=== PATIENT | male | born 1975 | race African-American/Black ===

== ENCOUNTER 2017-05-27 18:06 | Emergency (ER) | payer OTHER ==
[2017-05-27] MEDS: LISINOPRIL 10 MG TABLET PO (20:12)
[2017-05-27] MEDS: hydroCHLOROthiazide 12.5 MG CAPSULE PO (20:12)
== END 2017-05-27 22:12 | disposition home or self-care (01) ==
LOC: ER 18:06
DX: L03.115 Cellulitis of right lower limb (principal); I10 Essential (primary) hypertension; E11.9 Type 2 diabetes mellitus without complications; E78.00 Pure hypercholesterolemia, unspecified; E66.01 Morbid (severe) obesity due to excess calories; Z68.43 Body mass index [BMI] 50.0-59.9, adult
CPT/HCPCS: 93971; 99284-25

== ENCOUNTER 2018-09-06 19:34 | Emergency (ER) | payer SELFPAY ==
[~2018-09-06] VITALS: Ht 180.3 cm; Wt 204.1 kg
[~2018-09-06 19:34] MED LIST: AMOX500T PO; CLIN150C14 PO; FLUT9.9S NS; HYDR12.58 PO; LISI10TA2 PO; METF10007 PO
[2018-09-06 19:41] VITALS: BP 182/111
[2018-09-06] MEDS ORDERED: CEPH-264 PO (19:56)
[2018-09-06] MEDS ORDERED: GENT5DRO3 RIGHTEYE (19:56)
--- NOTE | 2018-09-06 19:56 | PHYS DOC ---
Past Medical History Past Medical History: Diabetes-Type II, High Cholesterol, Hypertension, Other Additional Past Medical Histor: CELLULITIS (JEOVANNY MIGUEL) Past Surgical History: No Surgical History (JEOVANNY MIGUEL) Alcohol Use: None Drug Use: None (JEOVANNY MIGUEL) Adult General Chief Complaint Chief Complaint: EYE PROBLEMS HPI HPI Patient is a 42 year old male who reports an irritated R eye for the last 24 hours and today he noticed he had swelling of the lower R eyelid and his eye was matted shut. He has been holding warm compresses to the eye all day and reports improvement but that he is still having eye irritation. He denies any recent grinding or risk of FB. He is holding the eye wide open during exam without difficulty and no obvious tearing. Pt does not wear contacts or glasses. No prior eye surgery. (JEOVANNY MIGUEL) Review of Systems Review of Systems Constitutional: Denies fever or chills Eyes: Denies change in visual acuity. Reports R eye redness, swelling and pain. HENT: Denies nasal congestion or sore throat Respiratory: Denies cough or shortness of breath Cardiovascular: Denies chest pain GI: Denies abdominal pain, nausea, vomiting, bloody stools or diarrhea Musculoskeletal: Denies back pain or joint pain Integument: Denies rash or skin lesions. Reports swelling under R eye. Neurologic: Denies headache, focal weakness or sensory changes Endocrine: Denies polyuria or polydipsia. Has not checked his blood sugar today. All other systems were reviewed and found to be within normal limits, except as documented in this note. (JEOVANNY MIGUEL) Allergies Allergies Allergies Coded Allergies Type Severity Reaction Last Updated Verified No Known Drug Allergies 03/12/15 No (ROD LIRIANO DO) Physical Exam Physical Exam Constitutional: Well developed, well nourished, no acute distress, non-toxic appearance. HENT: Normocephalic, atraumatic, bilateral external ears normal, oropharynx moist, no oral exudates, nose normal. Eyes: PERRLA, EOMI, conjunctival erythema on R. Yellow drainage and matting on lashes. Lower internal hordeolum noted on exam that is draining. Neck: Normal range of motion, no tenderness, supple, no stridor. Cardiovascular:Heart rate regular rhythm, no murmur Lungs & Thorax: Bilateral breath sounds clear to auscultation Abdomen: Bowel sounds normal, soft, no tenderness, no masses, no pulsatile masses. Skin: Warm, dry. Erythema of R lower eyelid. No signs of periorbital cellulitis. Back: No tenderness, no CVA tenderness. [] Extremities: No tenderness, no cyanosis, no clubbing, ROM intact, no edema. Neurologic: Alert and oriented X 3, normal motor function, normal sensory function, no focal deficits noted. Psychologic: Affect normal, judgement normal, mood normal. (JEOVANNY MIGUEL) Current Patient Data Vital Signs Vital Signs Date Time Temp Pulse Resp B/P (MAP) Pulse Ox O2 Delivery O2 Flow Rate FiO2 09/06/18 19:41 97.6 83 20 182/111 (134) 97 Room Air 97.6 (LIRIANOROD BRISENO DO) EKG EKG [] (JEOVANNY MIGUEL) Radiology/Procedures Radiology/Procedures [] (JEOVANNY MIGUEL) Course & Med Decision Making Course & Med Decision Making Pertinent Labs and Imaging studies reviewed. (See chart for details) Pt's blood pressure is elevated while in ER. He agrees to recheck when feeling better. I have also discussed monitoring blood sugars closely while he is healing from this eye infection. While there is an obvious sty on exam, he does have injected conjunctiva and drainage consistent with conjunctivitis and some edema and tender of lower eyelid. Will cover with oral abx and abx drops. Pt to continue the warm compresses. (JEOVANNY MIGUEL) Dragon Disclaimer Dragon Disclaimer This electronic medical record was generated, in whole or in part, using a voice recognition dictation system. (JEOVANNY MIGUEL) Departure Departure Impression: Primary Impression: Stye Additional Impression: Conjunctivitis Disposition: 01 HOME, SELF-CARE Condition: STABLE Referrals: ROD CHANCE MD (PCP) Patient Instructions: Bacterial Conjunctivitis, [id number], Sty Additional Instructions: Please hold warm compresses to the eye every few hours. Follow up with opthomology if symptoms persist. Scripts Cephalexin (KEFLEX) 500 Mg Capsule 1 CAP PO TID for 7 Days, #21 CAP Prov: JEOVANNY MIGUEL 09/06/18 Gentamicin Sulfate (GENTAMICIN SULFATE 0.3% OPH SOLN) 5 Ml Drops 2 DROP RIGHTEYE QID for 7 Days, #5 ML Prov: JEOVANNY MIGUEL 09/06/18 Attending Signature Attending Signature I have reviewed the PA/CHIEF RADIOLOGY's note and plan of care. I was available for consultation as needed during the patient's visit in the emergency department. I agree with the clinical impression, plan, and disposition. (ROD LIRIANO DO) Problem Qualifiers JEOVANNY MIGUEL Sep 06, 2018 19:56 ROD LIRIANO DO Sep 07, 2018 05:40
== END 2018-09-06 20:00 | disposition home or self-care (01) ==
LOC: ER 19:34
DX: H00.022 Hordeolum internum right lower eyelid (principal); H10.89 Other conjunctivitis; E11.9 Type 2 diabetes mellitus without complications; E78.00 Pure hypercholesterolemia, unspecified; I10 Essential (primary) hypertension
CPT/HCPCS: 99283

== ENCOUNTER 2019-02-01 07:10 | Emergency (ER) | payer SELFPAY ==
[~2019-02-01] VITALS: Ht 182.9 cm; Wt 188.2 kg
[~2019-02-01 07:10] MED LIST changes: +CEPH-264 PO; +GENT5DRO3 RIGHTEYE
[2019-02-01 07:48] LABS: BASO # 0.1 x10^3/uL (0.0-0.2); BASO % 1 % (0-3); EOS # 0.2 x10^3/uL (0.0-0.7); EOS % 2 % (0-3); HEMATOCRIT 40.5 % (39.0-53.0); HEMOGLOBIN 13.5 g/dL (13.0-17.5); LYMPH # 2.9 x10^3/uL (1.0-4.8); LYMPH % 25 % (24-48); MEAN CORPUSCULAR HEMOGLOBIN 30 pg (25-35); MEAN CORPUSCULAR HGB CONC 33 g/dL (31-37); MEAN CORPUSCULAR VOLUME 89 fL (79-100); MONO # 0.7 x10^3/uL (0.0-1.1); MONO % 6 % (0-9); NEUT # 7.6 x10^3/uL (1.8-7.7); NEUT % 66 % (31-73); PLATELET COUNT 170 x10^3/uL (140-400); RED BLOOD COUNT 4.53 x10^6/uL (4.30-5.70); RED CELL DISTRIBUTION WIDTH 15.1 % (11.5-14.5); WHITE BLOOD COUNT 11.6 x10^3/uL (4.0-11.0)
[2019-02-01 07:56] LABS: CALCIUM 9.3 mg/dL (8.5-10.1); CREATININE 1.4 mg/dL (0.7-1.3); GFR 67.6; POTASSIUM 3.7 mmol/L (3.5-5.1)
[2019-02-01 08:01] LABS: ALBUMIN 3.5 g/dL (3.4-5.0); ALBUMIN/GLOBULIN RATIO 0.8 (1.0-1.7); TOTAL BILIRUBIN 0.2 mg/dL (0.2-1.0); TOTAL PROTEIN 8.1 g/dL (6.4-8.2)
--- NOTE | 2019-02-01 08:20 | RAD ---
Examination: Left Lower Extremity Venous Doppler Ultrasound History: Left lower extremity edema Comparison: None Procedure: Brenner scale, color flow 2D and spectal waveform analysis images are obtained with and without compression in the area of the common femoral vein, superficial femoral vein - femoral vein junction, main femoral vein (superficial femoral vein) and popliteal vein. Veins of the proximal calf are also imaged. Findings: Limited study due to patient body habitus. The calf veins could not be identified. There is normal duplex flow, color flow and compressibility of all visualized vein segments. No evidence of deep venous thrombus is present. There is a 6.2 cm lymph node identified in the left groin. Impression: 1. No evidence of deep venous thrombosis left lower extremity. Limited examination due to patient body habitus. The calf veins could not be identified. 2. Large left inguinal lymph node. Electronically signed by: Boyd Couch MD (02/01/2019 8:17 AM) [facility]
[2019-02-01 08:35] VITALS: BP 162/92
[2019-02-01] MEDS ORDERED: cefTRIAXone IV Push 1 GM VIAL. IVP ONE (09:00)
[2019-02-01] MEDS ORDERED: CEPH-264 PO (09:14)
[2019-02-01] MEDS ORDERED: LEVO750T31 PO (09:14)
--- NOTE | 2019-02-01 09:15 | PHYS DOC ---
Past Medical History Past Medical History: Diabetes-Type II, High Cholesterol, Hypertension, Other Additional Past Medical Histor: CELLULITIS Past Surgical History: No Surgical History Alcohol Use: None Drug Use: None Adult General Chief Complaint Chief Complaint: LOWER EXTREMITY SWELLING HPI HPI Patient is a 43 year old male who presents with complaining of left leg swelling. Patient complaining of chronic bilateral leg swelling at the [facility] for the last 3 days he had increase of left leg swelling that was pain for the first day and right now is not painful anymore. She states he had the same problem previously with diagnosis of cellulitis of his leg. Patient denies fever and chills, focal neuro deficit, shortness of breath, nausea and vomiting. Review of Systems Review of Systems Constitutional: Denies fever or chills [] Eyes: Denies change in visual acuity, redness, or eye pain [] HENT: Denies nasal congestion or sore throat [] Respiratory: Denies cough or shortness of breath [] Cardiovascular: No additional information not addressed in HPI [] GI: Denies abdominal pain, nausea, vomiting, bloody stools or diarrhea [] : Denies dysuria or hematuria [] Musculoskeletal: Denies back pain or joint pain [] Integument: Denies rash or skin lesions [] Neurologic: Denies headache, focal weakness or sensory changes [] Endocrine: Denies polyuria or polydipsia [] All other systems were reviewed and found to be within normal limits, except as documented in this note. Current Medications Current Medications Current Medications Medications (Trade) Dose Ordered Sig/Castro Start Time Stop Time Status Last Admin Dose Admin Ceftriaxone Sodium (Rocephin) 1 gm 1X ONCE 02/01/19 09:00 02/01/19 09:01 DC 02/01/19 09:19 1 GM Allergies Allergies Allergies Coded Allergies Type Severity Reaction Last Updated Verified No Known Drug Allergies 03/12/15 No Physical Exam Physical Exam Constitutional: Well developed, well nourished, no acute distress, non-toxic appearance, morbidly obese. [] HENT: Normocephalic, atraumatic. Eyes: PERRLA, EOMI, conjunctiva normal, no discharge. [] Neck: Normal range of motion, no tenderness, supple, no stridor. [] Cardiovascular:Heart rate regular rhythm, no murmur [] Lungs & Thorax: Bilateral breath sounds clear to auscultation [] Abdomen: Bowel sounds normal, soft, no tenderness, no masses, no pulsatile masses. [] Skin: Warm, dry, no rash. [] Back: No tenderness, no CVA tenderness. [] Extremities: Bilateral lower extremity. elephantiasis and erythema, left leg with mild erythema and increase of erythema without tenderness. Neurologic: Alert and oriented X 3, no focal deficits noted. [] Psychologic: Affect normal, judgement normal, mood normal. [] Current Patient Data Vital Signs Vital Signs Date Time Temp Pulse Resp B/P (MAP) Pulse Ox O2 Delivery O2 Flow Rate FiO2 02/01/19 08:35 162/92 (115) 98 Room Air 02/01/19 07:11 98.2 95 16 98.2 Lab Values Laboratory Tests Test 02/01/19 07:35 02/01/19 09:20 White Blood Count 11.6 x10^3/uL (4.0-11.0) H Red Blood Count 4.53 x10^6/uL (4.30-5.70) Hemoglobin 13.5 g/dL (13.0-17.5) Hematocrit 40.5 % (39.0-53.0) Mean Corpuscular Volume 89 fL (79-100) Mean Corpuscular Hemoglobin 30 pg (25-35) Mean Corpuscular Hemoglobin Concent 33 g/dL (31-37) Red Cell Distribution Width 15.1 % (11.5-14.5) H Platelet Count 170 x10^3/uL (140-400) Neutrophils (%) (Auto) 66 % (31-73) Lymphocytes (%) (Auto) 25 % (24-48) Monocytes (%) (Auto) 6 % (0-9) Eosinophils (%) (Auto) 2 % (0-3) Basophils (%) (Auto) 1 % (0-3) Neutrophils # (Auto) 7.6 x10^3/uL (1.8-7.7) Lymphocytes # (Auto) 2.9 x10^3/uL (1.0-4.8) Monocytes # (Auto) 0.7 x10^3/uL (0.0-1.1) Eosinophils # (Auto) 0.2 x10^3/uL (0.0-0.7) Basophils # (Auto) 0.1 x10^3/uL (0.0-0.2) Sodium Level 141 mmol/L (136-145) Potassium Level 3.7 mmol/L (3.5-5.1) Chloride Level 103 mmol/L (98-107) Carbon Dioxide Level 33 mmol/L (21-32) H Anion Gap 5 (6-14) L Blood Urea Nitrogen 23 mg/dL (8-26) Creatinine 1.4 mg/dL (0.7-1.3) H Estimated GFR (Cockcroft-Gault) 67.6 BUN/Creatinine Ratio 16 (6-20) Glucose Level 184 mg/dL (70-99) H Lactic Acid Level 1.2 mmol/L (0.4-2.0) Calcium Level 9.3 mg/dL (8.5-10.1) Total Bilirubin 0.2 mg/dL (0.2-1.0) Aspartate Amino Transferase (AST) 12 U/L (15-37) L Alanine Aminotransferase (ALT) 19 U/L (16-63) Alkaline Phosphatase 52 U/L (46-116) Total Protein 8.1 g/dL (6.4-8.2) Albumin 3.5 g/dL (3.4-5.0) Albumin/Globulin Ratio 0.8 (1.0-1.7) L Urine Collection Type Unknown Urine Color Yellow Urine Clarity Clear Urine pH 5.5 Urine Specific Bovey >=1.030 Urine Protein Negative mg/dL (NEG-TRACE) Urine Glucose (UA) Negative mg/dL (NEG) Urine Ketones (Stick) Negative mg/dL (NEG) Urine Blood Negative (NEG) Urine Nitrite Negative (NEG) Urine Bilirubin Negative (NEG) Urine Urobilinogen Dipstick 1.0 mg/dL (0.2 mg/dL) Urine Leukocyte Esterase Negative (NEG) Urine RBC 0 /HPF (0-2) Urine WBC 1-4 /HPF (0-4) Urine Squamous Epithelial Cells Few /LPF Urine Bacteria 0 /HPF (0-FEW) Urine Hyaline Casts Few /HPF Urine Mucus Mod /LPF Laboratory Tests 02/01/19 07:35 Laboratory Tests 02/01/19 07:35 EKG EKG [] Radiology/Procedures Radiology/Procedures [facility] [address] [place] [address] IMAGING REPORT Signed PATIENT: JAMIE BLANK ACCOUNT: [id number] : 1975 LOCATION: ER AGE: 43 SEX: M EXAM STATUS: REG ER ORD. PHYSICIAN: AXEL NEVAREZ MD REASON: left leg edema PROCEDURE: VENOUS LOWER EXTREMITY LEFT Examination: Left Lower Extremity Venous Doppler Ultrasound History: Left lower extremity edema Comparison: None Procedure: Brenner scale, color flow 2D and spectal waveform analysis images are obtained with and without compression in the area of the common femoral vein, superficial femoral vein - femoral vein junction, main femoral vein (superficial femoral vein) and popliteal vein. Veins of the proximal calf are also imaged. Findings: Limited study due to patient body habitus. The calf veins could not be identified. There is normal duplex flow, color flow and compressibility of all visualized vein segments. No evidence of deep venous thrombus is present. There is a 6.2 cm lymph node identified in the left groin. Impression: 1. No evidence of deep venous thrombosis left lower extremity. Limited examination due to patient body habitus. The calf veins could not be identified. 2. Large left inguinal lymph node. Electronically signed by: Boyd Couch MD (02/01/2019 8:17 AM) [place] [id number] DICTATED and SIGNED BY: BOYD COUCH MD DATE: 02/01/19816 Course & Med Decision Making Course & Med Decision Making Pertinent Labs and Imaging studies reviewed. (See chart for details) Evaluation of patient in ER showed 43-year-old male patient with morbid obesity and bilateral elephantiasis with increase of left leg erythema and marked tenderness and concern for cellulitis. Patient had negative venous Doppler study of left lower extremity for DVT. Labs showed marked leukocytosis and blood sugar of 184 with history of diabetes mellitus. Patient was to try outpatient treatment. 1 dose of Rocephin was given in ER and patient was advised to return to ER if not getting better. I've spoken with the patient and/or caregivers. I've explained the patient's condition, diagnosis and treatment plan based on information available to me at this time. I've answered the patient's and/or caregivers questions and addressed any concerns. The patient and/or caregivers have a good understanding the patient's diagnosis, condition and treatment plan as can be expected at this point. Vital signs have been stabilized. The patient's condition is stable for discharge from the emergency department. The patient will pursue further outpatient evaluation with her primary care provider or other designated consulting physician as outlined in the discharge instructions. Patient and/or caregivers are agreeable to this plan of care and follow-up instructions have been explained in detail. The patient and/or caregivers have received these instructions in written format and expressed understanding of these discharge instructions. The patient and her caregivers are aware that if any significant change in condition or worsening of symptoms should prompt him to immediately return to this of the closest emergency department. If an emergent department is not readily available I would encourage him to call 911. Dragon Disclaimer Dragon Disclaimer This electronic medical record was generated, in whole or in part, using a voice recognition dictation system. Departure Departure Impression: Primary Impression: Cellulitis of lower extremity Additional Impressions: Uncontrolled diabetes mellitus Renal insufficiency Morbid obesity Disposition: HOME, SELF-CARE (at 0911) Condition: IMPROVED Referrals: ROD CHANCE MD (PCP) Patient Instructions: Cellulitis Additional Instructions: Follow-up with your primary care physician in 2-3 days Return to ER if not getting better Scripts Levofloxacin (LEVAQUIN) 750 Mg Tablet 1 TAB PO DAILY, #10 TAB Prov: AXEL NEVAREZ MD 02/01/19 Cephalexin (KEFLEX) 500 Mg Capsule 2 CAP PO Q12HR, #40 CAP Prov: AXEL NEVAREZ MD 02/01/19 Problem Qualifiers Primary Impression: Cellulitis of lower extremity Laterality: left Qualified Codes: L03.116 - Cellulitis of left lower limb Additional Impressions: Uncontrolled diabetes mellitus Diabetes mellitus type: other specified (including NIKOS) Glycemic state: with hyperglycemia Qualified Codes: E13.65 - Other specified diabetes mellitus with hyperglycemia AXEL NEVAREZ MD Feb 01, 2019 09:15
[2019-02-01 09:36] LABS: BILIRUBIN,URINE NEGATIVE (NEG); CLARITY,URINE CLEAR; COLOR,URINE YELLOW; NITRITE,URINE NEGATIVE (NEG); PH,URINE 5.5; PROTEIN,URINE NEGATIVE (NEG-TRACE)
[2019-02-01 10:20] LABS: SQUAMOUS EPITHELIAL CELL,UR FEW /LPF
[2019-02-01 10:21] LABS: HYALINE CASTS, URINE FEW /HPF
[2019-02-01 10:22] LABS: BACTERIA,URINE 0 /HPF (0-FEW); RBC,URINE 0 /HPF (0-2)
== END 2019-02-01 09:50 | disposition home or self-care (01) ==
LOC: ER 07:10
DX: L03.116 Cellulitis of left lower limb (principal); E13.65 Other specified diabetes mellitus with hyperglycemia; M79.89 Other specified soft tissue disorders; E66.01 Morbid (severe) obesity due to excess calories; Z68.43 Body mass index [BMI] 50.0-59.9, adult; N28.9 Disorder of kidney and ureter, unspecified; I10 Essential (primary) hypertension; E78.00 Pure hypercholesterolemia, unspecified
CPT/HCPCS: 36415; 80053; 81001; 83605; 85025; 93971; 96374; 99285; J0696

== ENCOUNTER 2019-10-23 21:06 | Inpatient (IN) | payer SELFPAY ==
[~2019-10-23] VITALS: Ht 180.3 cm; Wt 209.0 kg
[~2019-10-23 21:06] MED LIST changes: +LEVO750T31 PO
[2019-10-23 22:24] LABS: BASO # 0.1 x10^3/uL (0.0-0.2); BASO % 1 % (0-3); EOS # 0.1 x10^3/uL (0.0-0.7); EOS % 1 % (0-3); HEMATOCRIT 41.6 % (39.0-53.0); HEMOGLOBIN 13.8 g/dL (13.0-17.5); LYMPH # 1.3 x10^3/uL (1.0-4.8); LYMPH % 14 % (24-48); MEAN CORPUSCULAR HEMOGLOBIN 28 pg (25-35); MEAN CORPUSCULAR HGB CONC 33 g/dL (31-37); MEAN CORPUSCULAR VOLUME 85 fL (79-100); MONO # 1.6 x10^3/uL (0.0-1.1); MONO % 16 % (0-9); NEUT # 6.9 x10^3/uL (1.8-7.7); NEUT % 69 % (31-73); RED BLOOD COUNT 4.87 x10^6/uL (4.30-5.70); RED CELL DISTRIBUTION WIDTH 15.9 % (11.5-14.5); WHITE BLOOD COUNT 9.9 x10^3/uL (4.0-11.0)
--- NOTE | 2019-10-23 22:27 | PHYS DOC ---
Past Medical History Past Medical History: Diabetes-Type II, Hypertension Additional Past Medical Histor: CELLULITIS Past Surgical History: No Surgical History Smoking Status: Current Every Day Smoker Additional Information: Alcohol Use: Occasionally Drug Use: None General Adult EDM: Chief Complaint: MULTIPLE COMPLAINTS HPI: HPI: Patient is a 44 year old male who presents with 2 to 3-day history of cough, chest congestion, chest tightness and shortness of breath. Patient also feels like he has been running a fever but does not know if he has been. He also states that he has lost taste for the last few days and became concerned because he is someone who likes to eat and he is not been able to eat since he has lost his taste. Patient does indicate that he works at the [employer] and has been exposed to a lot of cases of COVID he believes. Patient denies any vomiting or diarrhea. He denies any actual chest pain. [] Review of Systems: Review of Systems: Constitutional: Positive subjective fever. [] Respiratory: Complains of cough and shortness of breath. [] Cardiovascular: Denies chest pain. [] GI: Denies abdominal pain, nausea, vomiting, bloody stools or diarrhea. [] Neurologic: Denies headache, focal weakness or sensory changes. [] A full 10 point review of systems has been reviewed and is otherwise negative. Heart Score: Risk Factors: Risk Factors: DM, Current or recent (<one month) smoker, HTN, HLP, family history of CAD, obesity. Risk Scores: Score 0 - 3: 2.5% MACE over next 6 weeks - Discharge Home Score 4 - 6: 20.3% MACE over next 6 weeks - Admit for Clinical Observation Score 7 - 10: 72.7% MACE over next 6 weeks - Early Invasive Strategies Allergies: Allergies: Allergies Coded Allergies Type Severity Reaction Last Updated Verified No Known Drug Allergies 03/12/15 No Physical Exam: PE: Constitutional: Well developed, well nourished, no acute distress, non-toxic appearance. [] HENT: Normocephalic, atraumatic, bilateral external ears normal, oropharynx moist, no oral exudates, nose normal. [] Eyes: PERRLA, EOMI, conjunctiva normal, no discharge. [] Neck: Normal range of motion, no tenderness, supple. [] Cardiovascular: Regular rate and rhythm [] Lungs & Thorax: Bilateral breath sounds clear to auscultation [] Abdomen: Bowel sounds normal, soft, no tenderness. [] Skin: Warm, dry, no erythema, no rash. [] Extremities: No tenderness, no cyanosis, no clubbing, ROM intact, with lower extremity edema. [] Neurologic: Alert and oriented X 3, no focal deficits noted. [] Current Patient Data: Vital Signs: Vital Signs Date Time Temp Pulse Resp B/P (MAP) Pulse Ox O2 Delivery O2 Flow Rate FiO2 10/23/19 21:35 98.6 102 26 124/78 (93) 96 Room Air 98.6 EKG: EKG: EKG demonstrates sinus tachycardia with a rate of 101. [] Radiology/Procedures: Radiology/Procedures: [] Impression: PROCEDURE: PORTABLE CHEST 1V Exam: Chest one view INDICATION: Dyspnea TECHNIQUE: Frontal view of the chest Comparisons: None FINDINGS: The cardiomediastinal silhouette and pulmonary vessels are within normal limits. Patchy airspace disease in the right mid and lower lung. No pleural effusion. IMPRESSION: Right middle lobe pneumonia. Follow-up imaging posttreatment to ensure resolution is recommended. Electronically signed by: Austin Hernandes MD (10/23/2019 10:46 PM) [id number] Course & Med Decision Making: Course & Med Decision Making Pertinent Labs and Imaging studies reviewed. (See chart for details) [] Dragon Disclaimer: Dragon Disclaimer: This electronic medical record was generated, in whole or in part, using a voice recognition dictation system. Departure Departure Impression: Primary Impression: Right middle lobe pneumonia Qualified Codes: J18.9 - Pneumonia, unspecified organism Additional Impressions: [id number] kidney injury Qualified Codes: N17.9 - Acute kidney failure, unspecified; N18.9 - Chronic kidney disease, unspecified Urinary tract infection Qualified Codes: N39.0 - Urinary tract infection, site not specified; R31.9 - Hematuria, unspecified Person under investigation for COVID-19 Disposition: ADMITTED INPATIENT Admitting Physician: HIMJermain Condition: IMPROVED Referrals: ROD CHANCE MD (PCP) Justicifation of Admission Dx: Justifications for Admission: Justification of Admission Dx: Yes Comminuty Aquired Pneumonia: Respiratory Findings LUIS MITCHELL Jr. DO Oct 23, 2019 22:27
[2019-10-23 22:34] LABS: CALCIUM 8.7 mg/dL (8.5-10.1); CREATININE 2.3 mg/dL (0.7-1.3); GFR 37.9; POTASSIUM 3.6 mmol/L (3.5-5.1)
[2019-10-23 22:40] LABS: ALBUMIN 2.6 g/dL (3.4-5.0); ALBUMIN/GLOBULIN RATIO 0.5 (1.0-1.7); TOTAL BILIRUBIN 0.5 mg/dL (0.2-1.0); TOTAL PROTEIN 7.9 g/dL (6.4-8.2)
[2019-10-23 22:47] LABS: PLATELET COUNT 138 x10^3/uL (140-400)
--- NOTE | 2019-10-23 22:49 | RAD ---
Exam: Chest one view INDICATION: Dyspnea TECHNIQUE: Frontal view of the chest Comparisons: None FINDINGS: The cardiomediastinal silhouette and pulmonary vessels are within normal limits. Patchy airspace disease in the right mid and lower lung. No pleural effusion. IMPRESSION: Right middle lobe pneumonia. Follow-up imaging posttreatment to ensure resolution is recommended. Electronically signed by: Austin Hernandes MD (10/23/2019 10:46 PM) [id number]
[2019-10-23 22:56] LABS: PLT ESTIMATE ADEQUATE (ADEQUATE)
[2019-10-23 23:04] LABS: INFLUENZA A PATIENT NEGATIVE (NEGATIVE); INFLUENZA B PATIENT NEGATIVE (NEGATIVE)
[2019-10-24] MEDS ORDERED: cefTRIAXone IV Push 1 GM VIAL. IVP ONE
[2019-10-24] MEDS ORDERED: AZITHROMYCIN 250 MG TABLET. PO ONE
[2019-10-24 00:33] LABS: BILIRUBIN,URINE MODERATE (NEG); CLARITY,URINE CLOUDY; NITRITE,URINE POSITIVE (NEG); PROTEIN,URINE 100 mg/dL (NEG-TRACE)
[2019-10-24 00:40] LABS: SQUAMOUS EPITHELIAL CELL,UR FEW /LPF
[2019-10-24 00:41] LABS: BACTERIA,URINE FEW /HPF (0-FEW); COLOR,URINE AMBER
[2019-10-24 00:42] LABS: AMORPHOUS SEDIMENT,UR PRESENT /HPF; GRANULAR CASTS,URINE OCCASIONAL /HPF; HYALINE CASTS, URINE MANY /HPF
[2019-10-24] MEDS ORDERED: IV NORMAL SALINE 1000ML BAG 1,000 ML IV ONE (00:45)
[2019-10-24] MEDS ORDERED: ACETAMINOPHEN 325 MG TABLET. PO PRN (01:45)
[2019-10-24] MEDS ORDERED: ONDANSETRON PF 4 MG/2 ML VIAL. IV PRN (01:45)
[2019-10-24] MEDS ORDERED: MORPHINE SULFATE 2 MG/ML VIAL. IV PRN (01:45)
[2019-10-24 03:00] VITALS: BP 131/110
--- NOTE | 2019-10-24 06:25 | EKG ---
[facility] [address] [place] [address] Test Date: 2019-10-23 Test Time: 21:35:45 Pat Name: JAMIE BLANK Department: Room: 672 1 Gender: M [employer]: : 1975 Requested By: LUIS MITCHELL Order Number: [id number] Reading MD: David Pinedo Measurements Intervals [place] Rate: 101 P: 40 OR: 114 QRS: 43 QRSD: 92 T: 53 QT: 342 QTc: 444 Interpretive Statements SINUS TACHYCARDIA NONSPECIFIC ST-T WAVE CHANGES. Electronically Signed On 10-26-2019 16:19:18 CDT by David Pinedo
[2019-10-24 07:00] VITALS: BP 97/72
[2019-10-24] MEDS: IV NORMAL SALINE 1000ML BAG 1,000 ML IV SCH ×3 (07:20→17:35)
--- NOTE | 2019-10-24 08:49 | RAD ---
EXAM: CHEST AP ONLY INDICATION: Reason: follow up dyspnea/ Spl. Instructions: / History: . TECHNIQUE: Single view COMPARISON: 10/23/2019 chest x-ray FINDINGS: The heart size is enlarged, similar to prior. The great vessels appear unremarkable. There is no hilar or mediastinal mass. Lungs again show lower lobe consolidation in the right middle lobe, affecting the lateral segment to the greatest extent. This is not significantly changed in the interval. There is no pleural effusion or pneumothorax. There are no significant osseous abnormalities. IMPRESSION: Stable findings of right middle lobe pneumonia with no significant interval change. Electronically signed by: Mushtaq Dumont MD (10/24/2019 8:46 AM) [id number]
[2019-10-24 10:46] VITALS: BP 110/67
--- NOTE | 2019-10-24 14:17 | PDOC1 ---
History and Physical Date of Admission Date of Admission October 24, 2019 Identification/Chief Complaint Chief Complaint I could not breathe Source Source: Chart review, Patient History of Present Illness History of Present Illness Patient is a 45-year-old gentleman with past medical history of type 2 diabetes and essential hypertension who was in his usual state of health until approximately 2 to 3 days prior to his admission when he started complaining of some chest congestion cough which is dry in nature some chest tightness and shortness of breath. Also associated with it was the loss of taste which got him somewhat concerned. Apparently his food did not taste the same it was quite bland and given that he could not taste the food he has lost his appetite and has not had good oral intake over the last 2 to 3 days. 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 He denies being exposed to positive cases of coronavirus nevertheless yesterday while touring a facility he was asked to climb several flights of stairs and by the end of the exercise the patient was unable to catch his breath reason why he decided to come to the emergency department for further evaluation and treatment. The patient denies any fever no chills yesterday he was diaphoretic given that he had exerted himself with the steroid case climbing. He denies pleurisy no nausea vomiting no diarrhea no headache no generalized malaise no odynophagia was reported no other symptoms he was found to have a right middle lobe pneumonia reason why we were asked to admit the patient to the hospital for further treatment and to test for coronavirus. At the time of my visit the patient is not exhibiting increased work of breathing and he feels better after initial antibiotic therapy has been instituted in the emergency department. Plan of care has been explained detail and all of his concerns were addressed to the best of my abilities. The patient denies utilizing oxygen at home, has never been intubated. All of his concerns were addressed to the best of my ability Past Medical History Cardiovascular: HTN Endocrine: Diabetes Past Surgical History Past Surgical History: No pertinent history Family History Family History: Other (Reviewed and found negative noncontributory to the present) Current Problem List Problem List Problems Medical Problems: (1) [id number] kidney injury Status: Acute (2) Person under investigation for COVID-19 Status: Acute (3) Right middle lobe pneumonia Status: Acute (4) Urinary tract infection Status: Acute Current Medications Current Medications Current Medications Medications (Trade) Dose Ordered Sig/Castro Start Time Stop Time Status Last Admin Dose Admin Acetaminophen (Tylenol) 650 mg PRN Q4HRS PRN 10/24/19 01:45 10/25/19 01:44 Azithromycin (Zithromax) 500 mg 1X ONCE 10/24/19 00:00 10/24/19 00:01 DC 10/24/19 00:24 500 MG Ceftriaxone Sodium (Rocephin) 1 gm 1X ONCE 10/24/19 00:00 10/24/19 00:01 DC 10/24/19 00:25 1 GM Morphine Sulfate (Morphine Sulfate) 2 mg PRN Q2HR PRN 10/24/19 01:45 10/25/19 01:44 Ondansetron HCl (Zofran) 4 mg PRN Q8HRS PRN 10/24/19 01:45 10/25/19 01:44 Sodium Chloride 1,000 ml @ 125 mls/hr Q8H 10/24/19 01:40 10/25/19 01:39 10/24/19 07:20 125 MLS/HR Allergies Allergies Allergies Coded Allergies Type Severity Reaction Last Updated Verified No Known Drug Allergies 03/12/15 No ROS Review of System CONSTITUTIONAL: No fever + chills EYES: No recent changes SKIN: No rash or itching CARDIOVASCULAR: No chest pain, syncope, palpitations, or edema RESPIRATORY: + SOB + cough GASTROINTESTINAL: No nausea, vomiting or abdominal pain NEUROLOGICAL: No headaches or weakness ENDOCRINE: No cold or heat intolerance GENITOURINARY: No urgency or frequency of urination MUSCULOSKELETAL: No back pain or joint pain LYMPHATICS: No enlarged lymph nodes PSYCHIATRIC: No anxiety or depression Physical Exam Physical Exam GEN.: No apparent distress. Alert and oriented. HEENT: Head is normocephalic, atraumatic NECK: Supple. LUNGS: Clear to auscultation. HEART: RRR, S1, S2 present. Peripheral pulses intact ABDOMEN: Soft, nontender. Positive bowel sounds. EXTREMITIES: Without any cyanosis. NEUROLOGIC: Normal speech, normal tone PSYCHIATRIC: Normal affect, normal mood. SKIN: No ulcerations Vitals Vitals Vital Signs Date Time Temp Pulse Resp B/P (MAP) Pulse Ox O2 Delivery O2 Flow Rate FiO2 10/24/19 10:46 97.1 94 19 110/67 (81) 95 Room Air 97.1 10/24/19 03:00 2.0 Labs Labs Laboratory Tests Test 10/23/19 21:40 10/23/19 22:39 10/23/19 23:08 10/24/19 00:15 White Blood Count 9.9 x10^3/uL (4.0-11.0) Red Blood Count 4.87 x10^6/uL (4.30-5.70) Hemoglobin 13.8 g/dL (13.0-17.5) Hematocrit 41.6 % (39.0-53.0) Mean Corpuscular Volume 85 fL (79-100) Mean Corpuscular Hemoglobin 28 pg (25-35) Mean Corpuscular Hemoglobin Concent 33 g/dL (31-37) Red Cell Distribution Width 15.9 % (11.5-14.5) Platelet Count 138 x10^3/uL (140-400) Neutrophils (%) (Auto) 69 % (31-73) Lymphocytes (%) (Auto) 14 % (24-48) Monocytes (%) (Auto) 16 % (0-9) Eosinophils (%) (Auto) 1 % (0-3) Basophils (%) (Auto) 1 % (0-3) Neutrophils # (Auto) 6.9 x10^3/uL (1.8-7.7) Lymphocytes # (Auto) 1.3 x10^3/uL (1.0-4.8) Monocytes # (Auto) 1.6 x10^3/uL (0.0-1.1) Eosinophils # (Auto) 0.1 x10^3/uL (0.0-0.7) Basophils # (Auto) 0.1 x10^3/uL (0.0-0.2) Platelet Estimate Adequate (ADEQUATE) Giant Platelets Occ Sodium Level 131 mmol/L (136-145) Potassium Level 3.6 mmol/L (3.5-5.1) Chloride Level 96 mmol/L (98-107) Carbon Dioxide Level 26 mmol/L (21-32) Anion Gap 9 (6-14) Blood Urea Nitrogen 30 mg/dL (8-26) Creatinine 2.3 mg/dL (0.7-1.3) Estimated GFR (Cockcroft-Gault) 37.9 BUN/Creatinine Ratio 13 (6-20) Glucose Level 131 mg/dL (70-99) Lactic Acid Level 1.4 mmol/L (0.4-2.0) Calcium Level 8.7 mg/dL (8.5-10.1) Total Bilirubin 0.5 mg/dL (0.2-1.0) Aspartate Amino Transf (AST/SGOT) 67 U/L (15-37) Alanine Aminotransferase (ALT/SGPT) 59 U/L (16-63) Alkaline Phosphatase 51 U/L (46-116) Troponin I Quantitative < 0.017 ng/mL (0.000-0.055) SJ-Aqi-P-Type Natriuretic Peptide 133 pg/mL (0-124) Total Protein 7.9 g/dL (6.4-8.2) Albumin 2.6 g/dL (3.4-5.0) Albumin/Globulin Ratio 0.5 (1.0-1.7) Influenza Type A Antigen Negative (NEGATIVE) Influenza Type B Antigen Negative (NEGATIVE) Ammonia 10 mcmol/L (11-34) Urine Collection Type Unknown Urine Color Tiffany Urine Clarity Cloudy Urine pH 5.0 (<5.0-8.0) Urine Specific [place] 1.025 (1.000-1.030) Urine Protein 100 mg/dL (NEG-TRACE) Urine Glucose (UA) Negative mg/dL (NEG) Urine Ketones (Stick) Trace mg/dL (NEG) Urine Blood Small (NEG) Urine Nitrite Positive (NEG) Urine Bilirubin Moderate (NEG) Urine Urobilinogen Dipstick 1.0 mg/dL (0.2 mg/dL) Urine Leukocyte Esterase Small (NEG) Urine RBC 3-5 /HPF (0-2) Urine WBC 11-20 /HPF (0-4) Urine Squamous Epithelial Cells Few /LPF Urine Amorphous Sediment Present /HPF Urine Bacteria Few /HPF (0-FEW) Urine Hyaline Casts Many /HPF Urine Granular Casts Occasional /HPF Urine Mucus Marked /LPF Test 10/24/19 07:55 10/24/19 11:15 Glucose (Fingerstick) 116 mg/dL (70-99) 155 mg/dL (70-99) Laboratory Tests Test 10/23/19 21:40 10/23/19 22:39 10/23/19 23:08 10/24/19 00:15 White Blood Count 9.9 x10^3/uL (4.0-11.0) Red Blood Count 4.87 x10^6/uL (4.30-5.70) Hemoglobin 13.8 g/dL (13.0-17.5) Hematocrit 41.6 % (39.0-53.0) Mean Corpuscular Volume 85 fL (79-100) Mean Corpuscular Hemoglobin 28 pg (25-35) Mean Corpuscular Hemoglobin Concent 33 g/dL (31-37) Red Cell Distribution Width 15.9 % (11.5-14.5) Platelet Count 138 x10^3/uL (140-400) Neutrophils (%) (Auto) 69 % (31-73) Lymphocytes (%) (Auto) 14 % (24-48) Monocytes (%) (Auto) 16 % (0-9) Eosinophils (%) (Auto) 1 % (0-3) Basophils (%) (Auto) 1 % (0-3) Neutrophils # (Auto) 6.9 x10^3/uL (1.8-7.7) Lymphocytes # (Auto) 1.3 x10^3/uL (1.0-4.8) Monocytes # (Auto) 1.6 x10^3/uL (0.0-1.1) Eosinophils # (Auto) 0.1 x10^3/uL (0.0-0.7) Basophils # (Auto) 0.1 x10^3/uL (0.0-0.2) Platelet Estimate Adequate (ADEQUATE) Giant Platelets Occ Sodium Level 131 mmol/L (136-145) Potassium Level 3.6 mmol/L (3.5-5.1) Chloride Level 96 mmol/L (98-107) Carbon Dioxide Level 26 mmol/L (21-32) Anion Gap 9 (6-14) Blood Urea Nitrogen 30 mg/dL (8-26) Creatinine 2.3 mg/dL (0.7-1.3) Estimated GFR (Cockcroft-Gault) 37.9 BUN/Creatinine Ratio 13 (6-20) Glucose Level 131 mg/dL (70-99) Lactic Acid Level 1.4 mmol/L (0.4-2.0) Calcium Level 8.7 mg/dL (8.5-10.1) Total Bilirubin 0.5 mg/dL (0.2-1.0) Aspartate Amino Transf (AST/SGOT) 67 U/L (15-37) Alanine Aminotransferase (ALT/SGPT) 59 U/L (16-63) Alkaline Phosphatase 51 U/L (46-116) Troponin I Quantitative < 0.017 ng/mL (0.000-0.055) EG-Arp-I-Type Natriuretic Peptide 133 pg/mL (0-124) Total Protein 7.9 g/dL (6.4-8.2) Albumin 2.6 g/dL (3.4-5.0) Albumin/Globulin Ratio 0.5 (1.0-1.7) Influenza Type A Antigen Negative (NEGATIVE) Influenza Type B Antigen Negative (NEGATIVE) Ammonia 10 mcmol/L (11-34) Urine Collection Type Unknown Urine Color Tiffany Urine Clarity Cloudy Urine pH 5.0 (<5.0-8.0) Urine Specific [place] 1.025 (1.000-1.030) Urine Protein 100 mg/dL (NEG-TRACE) Urine Glucose (UA) Negative mg/dL (NEG) Urine Ketones (Stick) Trace mg/dL (NEG) Urine Blood Small (NEG) Urine Nitrite Positive (NEG) Urine Bilirubin Moderate (NEG) Urine Urobilinogen Dipstick 1.0 mg/dL (0.2 mg/dL) Urine Leukocyte Esterase Small (NEG) Urine RBC 3-5 /HPF (0-2) Urine WBC 11-20 /HPF (0-4) Urine Squamous Epithelial Cells Few /LPF Urine Amorphous Sediment Present /HPF Urine Bacteria Few /HPF (0-FEW) Urine Hyaline Casts Many /HPF Urine Granular Casts Occasional /HPF Urine Mucus Marked /LPF Test 10/24/19 07:55 10/24/19 11:15 Glucose (Fingerstick) 116 mg/dL (70-99) 155 mg/dL (70-99) VTE Prophylaxis Ordered VTE Prophylaxis Devices: Yes VTE Pharmacological Prophylaxi: No Assessment/Plan Assessment/Plan Right middle lobe pneumonia Rule out COVID-19 infection Extreme morbid obesity with a BMI of 64 Diabetes mellitus type 2 Essential hypertension Plan Continue broad-spectrum antibiotic Symptomatic relief of symptoms Wait for COVID-19 testing Further recommendations based on the clinical course DVT prophylaxis with Lovenox Justicifation of Admission Dx: Justifications for Admission: Justification of Admission Dx: Yes Respiratory Failure: Severe Resp Distress SHERLYN HARDING MD Oct 24, 2019 14:17
[2019-10-24 15:00] VITALS: BP 121/76
[2019-10-24] MEDS ORDERED: cefTRIAXone IV Push 1 GM VIAL. IVP SCH (15:00)
[2019-10-24 19:00] VITALS: BP 138/79
[2019-10-24] MEDS: LACTOBACILLUS RHAMNOSUS GG 1 CAPSULE. PO SCH (20:18)
[2019-10-24 23:00] VITALS: BP 123/82
[2019-10-24] MEDS ORDERED: AZITHROMYCIN 250 MG TABLET. PO SCH (23:00)
[2019-10-25 03:00] VITALS: BP 136/75
[2019-10-25 07:00] VITALS: BP 155/79
[2019-10-25] MEDS: LACTOBACILLUS RHAMNOSUS GG 1 CAPSULE. PO SCH (08:06)
[2019-10-25 09:40] LABS: BASO # 0.1 x10^3/uL (0.0-0.2); BASO % 1 % (0-3); EOS # 0.2 x10^3/uL (0.0-0.7); EOS % 2 % (0-3); HEMATOCRIT 37.2 % (39.0-53.0); HEMOGLOBIN 12.4 g/dL (13.0-17.5); LYMPH # 1.4 x10^3/uL (1.0-4.8); LYMPH % 21 % (24-48); MEAN CORPUSCULAR HEMOGLOBIN 29 pg (25-35); MEAN CORPUSCULAR HGB CONC 33 g/dL (31-37); MEAN CORPUSCULAR VOLUME 86 fL (79-100); MONO # 0.8 x10^3/uL (0.0-1.1); MONO % 13 % (0-9); NEUT # 4.2 x10^3/uL (1.8-7.7); NEUT % 64 % (31-73); PLATELET COUNT 164 x10^3/uL (140-400); RED BLOOD COUNT 4.32 x10^6/uL (4.30-5.70); RED CELL DISTRIBUTION WIDTH 16.1 % (11.5-14.5); WHITE BLOOD COUNT 6.6 x10^3/uL (4.0-11.0)
[2019-10-25 09:48] LABS: CALCIUM 8.2 mg/dL (8.5-10.1); CREATININE 1.3 mg/dL (0.7-1.3); GFR 73.3; POTASSIUM 3.7 mmol/L (3.5-5.1)
--- NOTE | 2019-10-25 14:44 | DS ---
DATE OF DISCHARGE: 10/25/2019 ADMISSION DIAGNOSES: Right middle lobe pneumonia and urinary tract infection. DISCHARGE DIAGNOSES: Resolving pneumonia, resolving urinary tract infection. HOSPITAL COURSE: The patient is a pleasant middle-aged male, who presented with urinary tract infection and pneumonia. We were concerned he could have COVID-19. He was admitted. We actually ruled out COVID-19 this morning. I saw and examined, he was doing great. Heart tones are normal. Lungs are clear. I am discharging him on p.o. Augmentin. DISPOSITION: Home. ACTIVITY: As tolerated. DIET: Low sodium. MEDICATIONS: Please see the MRAD. TOTAL TIME: 34 minutes. RUTH MARINELLI DO DR: VIKASH/mino JOB#: [id number] / [id number]
== END 2019-10-25 11:29 | disposition home or self-care (01) | DRG 194 ==
LOC: ER 21:06 → 6 SOUTH 10-24 01:39
PROVIDERS: ADMIT Internal Medicine; ATTEND Internal Medicine
DX: J18.9 Pneumonia, unspecified organism (principal); N39.0 Urinary tract infection, site not specified; Z68.44 Body mass index [BMI] 60.0-69.9, adult; N17.9 Acute kidney failure, unspecified; E11.22 Type 2 diabetes mellitus with diabetic chronic kidney disease; E66.01 Morbid (severe) obesity due to excess calories; N18.9 Chronic kidney disease, unspecified; I12.9 Hypertensive chronic kidney disease with stage 1 through stage 4 chronic kidney disease, or unspecified chronic kidney disease; R43.9 Unspecified disturbances of smell and taste; Z87.891 Personal history of nicotine dependence; Z03.818 Encounter for observation for suspected exposure to other biological agents ruled out
CPT/HCPCS: 36415; 71045; 80048; 80053; 81001; 82140; 82962; 83605; 83880; 84484; 85025; 87040; 87086; 87205; 87804; 93005; 96361; 96374; J0696; J7030; 99285-25; G0378; U0003-CS